=== PATIENT | female | born 1950 | race Caucasian/White ===

== ENCOUNTER 2023-08-02 08:40 | Day surgery (SDC) | payer MEDICARE, OTHER, SELFPAY ==
[2023-07-28 09:13] VITALS: BMI 23.3
--- NOTE | 2023-07-30 07:53 | MHC.SHP ---
Pre-Procedural Eval Section A Date of Service: 07/30/23 The patient is an INPATIENT: No Changes since office visit: No Cold of Flu in the past 2 weeks, No New Medical Problems, No Changes in Medication and No Patient answered all questions The History & Physical has been completed within 30 days and I have reviewed it.: Yes Section B Chief Complaint: Age-related nuclear cataract, right eye Plan Diagnosis/Plan: Unchanged I have reviewed the history and physical and performed a pertinent physical examination on my patient. No changes have occurred unless specified. Time Spent With Patient Time: Total time managing care of this patient today ____ minutes.
--- NOTE | 2023-07-30 09:45 | P.CONAN_ITS ---
Documented by User: Xena Stovall NP 07/30/23 09:45 HPI - Anesthesia Eval Consult details Narrative: 73yo F for Right Cataract Extraction IOL Insertion Medically cleared No previous cataract on record DNR [facility] Past Medical History Medical History Sciatica Osteopenia Arthritis Back pain Hypothyroid Vertigo Migraine Elevated cholesterol Surgical History Surgical History Hx of section H/O colonoscopy Hx of cholecystectomy History of tonsillectomy and adenoidectomy Social History Social History Are you a primary caregiver assisted living to a significant other at home: No Do you presently have visiting nurse or other home services: No Patient Tobacco Use Status: Never used Tobacco Use of substances other than those prescribed or required for medical reasons: No Have you been hit, kicked, punched, or otherwise hurt by someone within the past year? If so, by whom?: No Are you DNR?: Yes Advance Directives Information Provided: Yes (as above n oted-advised to bring copies DOS) Advance Directives on File: No Recently lost weight without trying: No Eating poorly because of decreased appetite: No Nutrition Risks: No Nutritional Risk Poor oral hygiene: No Meds Allergies Allergy/AdvReac Type Severity Reaction Status Date / Time No Known Allergies Allergy Verified 08/02/23 10:06 Home Medications Medication Instructions Recorded Confirmed Last Taken Type atorvastatin 10 mg tablet 10 mg PO DAILY 07/28/23 07/28/23 Unknown History calcium carbonate 600 mg-vitamin 1 tab PO BID 07/28/23 07/28/23 Unknown History D3 5 mcg (200 unit) tablet diphenhydramine 25 0.5 tab PO BEDTIME PRN Pain 07/28/23 07/28/23 Unknown History mg-acetaminophen 500 mg tablet (Tylenol PM Extra Strength) fenofibrate nanocrystallized 145 145 mg PO DAILY 07/28/23 07/28/23 Unknown History mg tablet fluticasone furoate 27.5 1 spray intranasal BEDTIME 07/28/23 07/28/23 Unknown History mcg/actuation nasal spray,suspension (Flonase Sensimist) [id number] C-Mn 500 1 cap PO DAILY 07/28/23 07/28/23 Unknown History mg-400 mg capsule levothyroxine 75 mcg tablet 75 mcg PO DAILY 07/28/23 07/28/23 08/02/23 07:30 History loratadine 10 mg tablet 10 mg PO DAILY 07/28/23 07/28/23 Unknown History (Yvonne) omega 3 183.3 mg-dha 75 mg-epa 1 cap PO DAILY 07/28/23 07/28/23 Unknown History 91.6 mg-fish oil 306 mg capsule Exam Exam Date and Time: July 30, 2023 0945 Height,Weight and Vital Signs: Height 5 ft 4.5 in Weight 62.596 kg Assessment and Plan Assessment Anesthesia Assessment: Chart Reviewed Documented by User: Naheed Acevedo MD 08/02/23 10:30 [facility] Past Medical History Medical History Sciatica Osteopenia Arthritis Back pain Hypothyroid Vertigo Migraine Elevated cholesterol Surgical History Surgical History Hx of section H/O colonoscopy Hx of cholecystectomy History of tonsillectomy and adenoidectomy History of Problems with Anesthesia: No Social History Social History Are you a primary caregiver assisted living to a significant other at home: No Do you presently have visiting nurse or other home services: No Patient Tobacco Use Status: Never used Tobacco Use of substances other than those prescribed or required for medical reasons: No Have you been hit, kicked, punched, or otherwise hurt by someone within the past year? If so, by whom?: No Are you DNR?: Yes Advance Directives Information Provided: Yes (as above n oted-advised to bring copies DOS) Advance Directives on File: No Recently lost weight without trying: No Eating poorly because of decreased appetite: No Nutrition Risks: No Nutritional Risk Poor oral hygiene: No Meds Allergies Allergy/AdvReac Type Severity Reaction Status Date / Time No Known Allergies Allergy Verified 08/02/23 10:06 Home Medications Medication Instructions Recorded Confirmed Last Taken Type atorvastatin 10 mg tablet 10 mg PO DAILY 07/28/23 07/28/23 Unknown History calcium carbonate 600 mg-vitamin 1 tab PO BID 07/28/23 07/28/23 Unknown History D3 5 mcg (200 unit) tablet diphenhydramine 25 0.5 tab PO BEDTIME PRN Pain 07/28/23 07/28/23 Unknown History mg-acetaminophen 500 mg tablet (Tylenol PM Extra Strength) fenofibrate nanocrystallized 145 145 mg PO DAILY 07/28/23 07/28/23 Unknown History mg tablet fluticasone furoate 27.5 1 spray intranasal BEDTIME 07/28/23 07/28/23 Unknown History mcg/actuation nasal spray,suspension (Flonase Sensimist) [id number] C-Mn 500 1 cap PO DAILY 07/28/23 07/28/23 Unknown History mg-400 mg capsule levothyroxine 75 mcg tablet 75 mcg PO DAILY 07/28/23 07/28/23 08/02/23 07:30 History loratadine 10 mg tablet 10 mg PO DAILY 07/28/23 07/28/23 Unknown History (Yvonne) omega 3 183.3 mg-dha 75 mg-epa 1 cap PO DAILY 07/28/23 07/28/23 Unknown History 91.6 mg-fish oil 306 mg capsule Exam Airway Mallampati Class: II TM Dist: >3cm Neck ROM: Full Loose/Missing/Broken Teeth: No Heart: RRR Lungs: CTA Assessment and Plan Assessment Anesthesia Assessment: Anesthesia Plan Discussed Final Anesthetic Review History of Problems with Anesthesia: No NPO: Yes ASA Class: II Final Preanesthetic Review: Meds/Allgs Chart Reviewed, Consent Obtained/Reviewed and Anes Risks/Benef Reviewed Patient Risk: Low Procedure Risk: Low Anesthetic Plan Anesthetic Plan: MAC: Disposition: Standard PACU
[2023-08-02 10:09] VITALS: BP 134/76; PULSE 69; RESP 16; TEMP 36.8; O2SAT 97
[2023-08-02] MEDS: Tetracaine HCl/PF 0.5% Oph Sol 4 ML DROPS 1 DROP EYE-RIGHT (10:19)
[2023-08-02] MEDS: Cyclopentolate 1 % Ophth Sol 2 ML DRPBTL 1 DROP EYE-RIGHT ×3 (10:20→10:35)
[2023-08-02] MEDS: Tropicamide 1 % Ophth Sol 3 ML BTL 1 DROP EYE-RIGHT ×3 (10:22→10:36)
[2023-08-02] MEDS: Ketorolac Tromethamine 0.5% Op 5 ML DROPS 1 DROP EYE-RIGHT ×3 (10:24→10:37)
[2023-08-02] MEDS: Phenylephrine HCL 2.5% Oph SoL 2 ML BOTTLE 1 DROP EYE-RIGHT ×3 (10:29→10:38)
[2023-08-02] MEDS: Lactated Ringers 500 ML 50 ML IV (10:30)
--- NOTE | 2023-08-02 11:17 | HO.PNOPHT ---
Ophthalmology Procedure Procedure Date of Service: 08/02/23 Ophthalmology Viscoelastic: Arabella Kumart Dual Pack Pro Ophthalmology Lenses: TECRONEN [id number] (24) Procedure Notes: PREOPERATIVE DIAGNOSIS: Decreased visual acuity right eye secondary to cataract POSTOPERATIVE DIAGNOSIS: Same PROCEDURE: Right cataract extraction with intraocular lens insertion SURGEON: Kasi Gardner M.D. ANESTHESIA: Topical/MAC ESTIMATED BLOOD LOSS: None COMPLICATIONS: None After obtaining informed consent, the patient was brought to the operating room suite and placed in the supine position. After adequate sedation per anesthesia, topical drops of Tetracaine were given to the right eye. The eye was then prepped and draped in the usual sterile fashion. The operating room microscope was then positioned over the operative eye and a lid speculum placed. A paracentesis was created. Viscoelastic was then instilled into the anterior chamber. A three plane incision was then created temporally, utilizing a 2.85 mm keratome. Capsulotomy forceps were then utilized to create a circular tear capsulotomy. Hydrodissection and hydrodelineation were carried out until adequate mobilization of the nucleus occurred. Phacoemulsification was then utilized to remove the dense central nucleus followed by removal of the cortical material utilizing the automated aspiration irrigation unit. Viscoelastic was instilled into the posterior capsular bag followed by placement of a posterior chamber intraocular lens without difficulty. The residual Viscoelastic was then removed utilizing the automated IA machine. The wound was checked and found to be watertight. The patient tolerated the procedure well and the lid speculum was removed. Intracameral injection of Vigamox 0.1 mL followed by a subtenon injection of Kenalog-40 0.2 mL were administered. The patient will be seen in the a.m.
[2023-08-02 11:47] VITALS: BP 115/71; PULSE 66; RESP 17; TEMP 36.4; O2SAT 97
== END 2023-08-02 11:57 | disposition home or self-care (01) ==
PROVIDERS: PCP Family Medicine; Visit Provider Ophthalmology
PROC: (CPT 66985; principal; 2023-08-02 11:20)
DX: H25.11 Age-related nuclear cataract, right eye (principal); H52.4 Presbyopia; Z83.511 Family history of glaucoma; H18.413 Arcus senilis, bilateral; E78.00 Pure hypercholesterolemia, unspecified; E03.9 Hypothyroidism, unspecified; Z79.899 Other long term (current) drug therapy; Z66 Do not resuscitate
CPT/HCPCS: 66984; J2250; J3010; J3301; V2632